=== PATIENT | male | born 1950 | race Caucasian/White ===

== ENCOUNTER 2016-04-23 15:58 | Inpatient (IN) | payer BC, MEDICARE ==
[~2016-04-23] VITALS: Ht 185.4 cm; Wt 114.9 kg
[~2016-04-23 15:58] MED LIST: ASPI325T6 PO; IBUPROFEN200 M1 PO; IMURAN50 MG PO; LEXAPRO20 MG PO; MILK OF MA400 MG/52 PO; NORCO 325 MG-7.1 TAB PO; PRILOSEC 20MG20 MG PO; ROXICODONE 55 MG/TAB PO; SENOKOT8.6 MG PO; TYLENOL 500MG500 MG PO
[2016-08-07] VITALS (11 sets, daily range): BP systolic 111–149; BP diastolic 72–94; PULSE 68–78; TEMP 97.3–98.7
[2016-08-08 00:49] VITALS: BP 113/63; PULSE 79; TEMP 97.5
[2016-08-08 05:06] VITALS: BP 110/73; PULSE 82; TEMP 97.4
[2016-08-08 06:26] LABS: HEMATOCRIT 32.6 % (42.0-52.0); HEMOGLOBIN 10.7 g/dl (13.5-18.0)
[2016-08-08 07:43] VITALS: BP 132/77; PULSE 63
[2016-08-08 11:48] VITALS: BP 125/63; PULSE 78
[2016-08-08] MEDS ORDERED: ASPI325T6 PO (11:58)
[2016-08-08] MEDS ORDERED: TYLENOL 500MG500 MG PO (11:59)
[2016-08-08] MEDS ORDERED: SENOKOT8.6 MG PO (12:00)
[2016-08-08] MEDS ORDERED: ROXICODONE 55 MG/TAB PO (12:01)
[2016-08-08] MEDS ORDERED: NORCO 325 MG-7.1 TAB PO (12:02)
[2016-08-08] MEDS ORDERED: MILK OF MA400 MG/52 PO (12:03)
== END 2016-08-08 14:10 | disposition home or self-care (01) | DRG 483 ==
LOC: JCC 08-07 05:25
PROVIDERS: Orthopaedic Surgery
PROC: 0RRK0JZ Replacement of Left Shoulder Joint with Synthetic Substitute, Open Approach (ICD-10-PCS; principal; 2016-08-07 07:30)
DX: M19.012 Primary osteoarthritis, left shoulder (principal); K50.90 Crohn's disease, unspecified, without complications
CPT/HCPCS: A4315; A9284; C1713; C1776; J0171; J0690; J1170; J1885; J2270; J2405; J2704; J3010; J7120

== ENCOUNTER → 2016-07-25 | Outpatient (CLI) | payer BC ==
[2016-07-25 13:49] LABS: HIV 1/2 Antibodies Non-Reactive; HIV-1p24 Antigen Non-Reactive
== END ==
LOC: COL.LAB 11:53
PROVIDERS: Orthopaedic Surgery
DX: Z96.612 Presence of left artificial shoulder joint (principal)

== ENCOUNTER 2019-10-04 09:58 | Outpatient (CLI) | payer MEDICARE, OTHER | END 2019-10-05 | LOC: COL.RAD | DX: K31.84 Gastroparesis (principal); K21.0 Gastro-esophageal reflux disease with esophagitis | CPT/HCPCS: A9541 ==